=== PATIENT | male | born 1995 | race Caucasian/White ===

== ENCOUNTER 2022-04-03 03:44 | Emergency (ER) | payer SELFPAY ==
[2022-04-03 04:10] VITALS: BP 169/106; PULSE 90; TEMP 99.8; BMI 35.4
[2022-04-03] MEDS ORDERED: ACETAMINOPHEN 325 MG TABLET (FP) PO ONE (04:24)
[2022-04-03] MEDS ORDERED: ACETAMINOPHEN 325 MG TABLET (FP) ONE (04:28)
[2022-04-03] MEDS ORDERED: AMOX TR/POT CLAV 875MG/125MG TABLETS (FP) PO ONE (06:41)
[2022-04-03] MEDS ORDERED: AMOX TR/POT CLAV 875MG/125MG TABLETS (FP) ONE (06:44)
[2022-04-03 06:52] LABS: ALBUMIN 3.7 g/dl (3.4-5.0); BILIRUBIN,TOTAL 0.4 mg/dL (0.2-1); BLOOD UREA NITROGEN 15.3 mg/dL (7-18); CALCIUM 8.7 mg/dL (8.5-10.1); CREATININE 0.8 mg/dL (0.55-1.3); TOT PROT 7.5 g/dl (6.4-8.2)
[2022-04-03 07:33] LABS: BASO % 0.2 % (0-2.0); EOS % 1.9 % (0-4.5); HEMATOCRIT 43.5 % (35.4-49); HEMOGLOBIN 15.1 GM/dL (11.7-16.9); LYMPH % 26.5 % (8-40); MCHC 34.7 g/dl (32.0-35.9); MEAN CELL VOLUME 86.5 fl (80-96); NEUT % 59.4 % (42.8-82.8); PLATELET COUNT 217 10^3/uL (134-434); RBC 5.03 M/mm3 (4.00-5.60); WHITE BLOOD COUNT 10.7 K/mm3 (4.0-10.0)
== END 2022-04-03 07:03 | disposition home or self-care (01) ==
LOC: JER 03:44
DX: H66.005 Acute suppurative otitis media without spontaneous rupture of ear drum, recurrent, left ear (principal)
CPT/HCPCS: 36415; 70480-TC; 80053; 85025; 99284-25

== ENCOUNTER 2022-12-02 13:41 | Inpatient (IN) | payer OTHER ==
[2022-12-02] MEDS ORDERED: ONDANSETRON 4 MG/2 ML VIAL IVPUSH ONE (14:10)
[2022-12-02] MEDS ORDERED: SODIUM CHLORIDE 1,000 ML IV STA ×2 (14:10→15:50)
[2022-12-02] MEDS ORDERED: ONDANSETRON 4 MG/2 ML VIAL ONE (14:21)
[2022-12-02] MEDS ORDERED: FAMOTIDINE 20 MG/50 ML IVPB 20 MG/50 ML MG IVPB ONE ×2 (14:26→14:40)
[2022-12-02 14:55] LABS: BASO % 0.2 % (0-2.0); EOS % 0.2 % (0-4.5); HEMATOCRIT 48.1 % (35.4-49); LYMPH % 11.1 % (8-40); MCH 30.4 pg (25.7-33.7); MCHC 35.3 g/dl (32.0-35.9); MEAN PLT VOLUME 9.2 fl (7.5-11.1); MONO % 7.1 % (3.8-10.2); NEUT % 81.4 % (42.8-82.8); PLATELET COUNT 277 10^3/uL (134-434); RBC 5.59 M/mm3 (4.00-5.60); RDW 13.7 % (11.9-15.9); WHITE BLOOD COUNT 14.9 K/mm3 (4.0-10.0)
[2022-12-02 15:16] LABS: CALCIUM 9.5 mg/dL (8.5-10.1)
[2022-12-02 15:17] LABS: BLOOD UREA NITROGEN 10.8 mg/dL (7-18)
[2022-12-02 15:19] LABS: CREATININE 0.9 mg/dL (0.55-1.3)
[2022-12-02 15:21] LABS: BILIRUBIN,TOTAL 0.6 mg/dL (0.2-1); TOT PROT 8.5 g/dl (6.4-8.2)
[2022-12-02 15:31] LABS: EPI CELLS 9 /uL (0-25.1); HYALINE CASTS 1 /uL (0-3.1); URINE APPEARANCE CLEAR; URINE BACTERIA 5 /uL (0-1359); URINE BILIRUBIN NEGATIVE (NEGATIVE); URINE COLOR YELLOW; URINE GLUCOSE (UA) NEGATIVE (NEGATIVE); URINE KETONE NEGATIVE (NEGATIVE); URINE LEUK ESTERASE NEGATIVE (NEGATIVE); URINE NITRITE NEGATIVE (NEGATIVE); URINE PROTEIN 4+ (NEGATIVE); URINE RBC 200 /uL (0-23.9); URINE UROBILINOGEN 0.2 mg/dL (0.2-1.0); URINE WBC 5 /uL (0-25.8)
[2022-12-02] MEDS ORDERED: ACETAMINOPHEN 1000 MG/100 ML BAG IVPB ONE (17:34)
[2022-12-02] MEDS ORDERED: ACETAMINOPHEN INJECTION 100 ML IVPB ONE (17:53)
[2022-12-02] MEDS ORDERED: PIPERACILLIN/TAZOB 3.375 GM 3.375 GM in DEXTROSE 5%-WATER - 50 ML IVPB ONE (18:07)
[2022-12-02] MEDS ORDERED: PIPERACILLIN/TAZOB 3.375 GM 3.375 GM/50 ML BAG IVPB ONE (18:18)
[2022-12-02 18:52] LABS: INR 1.12 (0.83-1.09)
[2022-12-02 18:55] LABS: ACTIVATED PTT 36.8 SECONDS (25.2-36.5)
[2022-12-02] MEDS ORDERED: ONDANSETRON 4 MG/2 ML VIAL IVPUSH PRN (20:33)
[2022-12-02] MEDS ORDERED: ACETAMINOPHEN 1000 MG/100 ML BAG IVPB PRN ×2 (20:34→23:30)
[2022-12-02] MEDS ORDERED: hydrALAZINE HCL 20 MG/ML VIAL IVPB ONE (21:52)
[2022-12-02] MEDS ORDERED: LACTATED RINGERS SOLUTION 1,000 ML/1,000 ML INFUS.BAG IV SCH (22:00)
[2022-12-03 00:51] VITALS: BMI 36.8
[2022-12-03] MEDS: AMPICILLIN NA/SULBACTAM NA 1.5 GM in SODIUM CHLORIDE 100 ML IVPB SCH ×4 (03:40→15:00)
[2022-12-03] MEDS ORDERED: HYDROmorphone HCL CARPU-JECT 2 MG/1 ML DISP.SYRIN IM PRN (04:08)
[2022-12-03] MEDS ORDERED: ONDANSETRON 4 MG/2 ML VIAL IVPUSH ONE (04:09)
[2022-12-03] MEDS ORDERED: HYDROmorphone HCl 2 MG/ML VIAL IM ONE (04:10)
[2022-12-03] MEDS ORDERED: LOSARTAN POTASSIUM 50 MG TABLET PO ONE (04:12)
[2022-12-03 08:41] LABS: ALBUMIN 3.6 g/dl (3.4-5.0); BLOOD UREA NITROGEN 9.4 mg/dL (7-18)
[2022-12-03 08:44] LABS: CREATININE 0.8 mg/dL (0.55-1.3); PHOSPHOROUS 4.2 mg/dL (2.5-4.9)
[2022-12-03 08:45] LABS: CALCIUM 9.1 mg/dL (8.5-10.1); HEMATOCRIT 46.3 % (35.4-49); HEMOGLOBIN 16.1 GM/dL (11.7-16.9); MCH 29.8 pg (25.7-33.7); MCHC 34.7 g/dl (32.0-35.9); MEAN CELL VOLUME 85.7 fl (80-96); MEAN PLT VOLUME 9.4 fl (7.5-11.1); PLATELET COUNT 284 10^3/uL (134-434); RBC 5.41 M/mm3 (4.00-5.60); RDW 13.4 % (11.9-15.9); WHITE BLOOD COUNT 14.6 K/mm3 (4.0-10.0)
[2022-12-03 08:46] LABS: BILIRUBIN,TOTAL 0.8 mg/dL (0.2-1); TOT PROT 7.6 g/dl (6.4-8.2)
[2022-12-03] MEDS ORDERED: LACTATED RINGERS SOLUTION 1,000 ML/1,000 ML INFUS.BAG IV SCH ×2 (08:53→16:30)
[2022-12-03] MEDS ORDERED: hydrALAZINE HCL 20 MG/ML VIAL IVPB ONE (08:54)
[2022-12-03 12:39] LABS: EPI CELLS 7 /uL (0-25.1); HYALINE CASTS 3 /uL (0-3.1); PH,URINE 6.5 (5.0-8.0); URINE APPEARANCE CLEAR; URINE BACTERIA 2 /uL (0-1359); URINE BILIRUBIN NEGATIVE (NEGATIVE); URINE COLOR YELLOW; URINE GLUCOSE (UA) NEGATIVE (NEGATIVE); URINE KETONE NEGATIVE (NEGATIVE); URINE LEUK ESTERASE NEGATIVE (NEGATIVE); URINE NITRITE NEGATIVE (NEGATIVE); URINE PROTEIN 3+ (NEGATIVE); URINE RBC 55 /uL (0-23.9); URINE UROBILINOGEN 0.2 mg/dL (0.2-1.0); URINE WBC 5 /uL (0-25.8)
[2022-12-03] MEDS ORDERED: BUPIVACAINE HCL/PF 0.25% (2.5MG/ML) 10 ML VIAL ONE (13:28)
[2022-12-03] MEDS ORDERED: MIDAZOLAM HCL 2 MG/2 ML SINGLE DOSE VIAL ONE (13:50)
[2022-12-03] MEDS ORDERED: ROCURONIUM BROMIDE 50 MG/5 ML SYRINGE ONE ×2 (13:50→16:28)
[2022-12-03] MEDS ORDERED: PROPOFOL 40 ML ONE (13:50)
[2022-12-03] MEDS ORDERED: SUCCINYLCHOLINE CHLORIDE 200 MG/10 ML SYRINGE ONE (13:50)
[2022-12-03] MEDS ORDERED: AMPICILLIN SODIUM 2 GM VIAL IVPB ONE ×2 (14:24→14:25)
[2022-12-03] MEDS ORDERED: BUPIVACAINE HCL/PF 2.5 MG/ML - 30 ML VIAL IJ ONE (14:30)
[2022-12-03] MEDS ORDERED: PROPOFOL 20 ML ONE (14:38)
[2022-12-03] MEDS ORDERED: KETAMINE HCL 500 MG/10 ML VIAL ONE (14:45)
[2022-12-03] MEDS ORDERED: DEXMEDETOMIDINE HCL 200 MCG/2 ML IVPB ONE (16:11)
[2022-12-03] MEDS ORDERED: ACETAMINOPHEN INJECTION 100 ML IVPB ONE ×2 (16:12→20:28)
[2022-12-03] MEDS ORDERED: ONDANSETRON 4 MG/2 ML VIAL IVPUSH PRN ×2 (16:30→16:45)
[2022-12-03] MEDS ORDERED: LACTATED RINGERS SOLUTION 1,000 ML IV SCH (16:45)
[2022-12-03 18:36] VITALS: RESP 18
[2022-12-03] MEDS: ACETAMINOPHEN 1000 MG/100 ML BAG IVPB SCH (21:32)
[2022-12-04] MEDS: KETOROLAC TROMETHAMINE 30 MG/1 ML VIAL IVPUSH SCH ×3 (01:34→09:51)
[2022-12-04] MEDS: ACETAMINOPHEN 1000 MG/100 ML BAG IVPB SCH ×2 (05:18→09:52)
[2022-12-04 08:45] LABS: BASO % 0.1 % (0-2.0); EOS % 0.2 % (0-4.5); HEMATOCRIT 40.9 % (35.4-49); HEMOGLOBIN 13.9 GM/dL (11.7-16.9); LYMPH % 15.3 % (8-40); MCH 29.6 pg (25.7-33.7); MCHC 34.1 g/dl (32.0-35.9); MEAN CELL VOLUME 86.8 fl (80-96); MEAN PLT VOLUME 9.3 fl (7.5-11.1); MONO % 10.5 % (3.8-10.2); NEUT % 73.9 % (42.8-82.8); PLATELET COUNT 265 10^3/uL (134-434); RBC 4.71 M/mm3 (4.00-5.60); RDW 13.8 % (11.9-15.9); WHITE BLOOD COUNT 13.7 K/mm3 (4.0-10.0)
[2022-12-04 09:05] LABS: BLOOD UREA NITROGEN 21.2 mg/dL (7-18); CALCIUM 8.5 mg/dL (8.5-10.1)
[2022-12-04 09:08] LABS: CREATININE 0.9 mg/dL (0.55-1.3)
[2022-12-04 09:09] LABS: TOT PROT 6.5 g/dl (6.4-8.2)
[2022-12-04 09:10] LABS: BILIRUBIN,TOTAL 0.7 mg/dL (0.2-1)
[2022-12-04 11:15] VITALS: BP 124/77; PULSE 82; TEMP 98.2
[2022-12-04] MEDS ORDERED: LISINOPRIL 5 MG TABLET PO SCH (13:45)
[2022-12-08 21:33] LABS: ANTIGLOMERULAR BASEMENT MEN.AB <0.2 units (0.0-0.9)
[2022-12-09 16:09] LABS: ATYPICAL pANCA <1:20 titer (Neg:<1:20); C-ANCA <1:20 titer (Neg:<1:20)
== END 2022-12-04 14:12 | disposition home or self-care (01) | DRG 263 ==
LOC: JER 13:41 → JERBED 18:29 → J5S 20:59
PROVIDERS: ADMIT Internal Medicine; ATTEND Internal Medicine
PROC: 0FT44ZZ Resection of Gallbladder, Percutaneous Endoscopic Approach (ICD-10-PCS; principal; 2022-12-03 13:30)
DX: K81.0 Acute cholecystitis (principal); K21.9 Gastro-esophageal reflux disease without esophagitis; I10 Essential (primary) hypertension; R80.9 Proteinuria, unspecified; R31.29 Other microscopic hematuria; E66.9 Obesity, unspecified; Z68.36 Body mass index [BMI] 36.0-36.9, adult
CPT/HCPCS: 36415; 71046-TC-FY; 76705-TC; 80053; 81003; 82150; 82533; 82570; 83036; 83516; 83520; 83690; 83735; 84100; 84155; 84156; 84165; 84443; 85025; 85027; 85610; 85730; 86038; 86140; 86160; 86225; 86256; 86850; 86900; 86901; 87086; 87340; 87517; 87522; 88304-TC; 93005; 93010; 94760; 99285-25; C9803-CS; U0003; U0005

== ENCOUNTER 2023-01-04 16:24 | Emergency (ER) | payer OTHER ==
[2023-01-04 16:34] VITALS: BP 155/94; PULSE 90; RESP 18; TEMP 98.7; BMI 39.1
== END 2023-01-04 17:17 | disposition home or self-care (01) ==
LOC: JERFT 16:24
DX: H66.91 Otitis media, unspecified, right ear (principal); H60.91 Unspecified otitis externa, right ear
CPT/HCPCS: 99283-25

== ENCOUNTER 2023-08-03 10:03 | Emergency (ER) | payer SELFPAY ==
[2023-08-03 10:12] VITALS: BMI 37.5
[2023-08-03] MEDS ORDERED: ACETAMINOPHEN 1000 MG/100 ML BAG IVPB ONE (11:04)
[2023-08-03] MEDS ORDERED: ACETAMINOPHEN INJECTION 100 ML IVPB ONE (11:36)
[2023-08-03 12:40] LABS: ALBUMIN 3.5 g/dl (3.4-5.0)
[2023-08-03 12:43] LABS: CREATININE 0.7 mg/dL (0.55-1.3)
[2023-08-03 12:45] LABS: BILIRUBIN,TOTAL 0.7 mg/dL (0.2-1)
[2023-08-03 12:54] LABS: BLOOD UREA NITROGEN 13.4 mg/dL (7-18); CALCIUM 7.9 mg/dL (8.5-10.1); TOT PROT 7.6 g/dl (6.4-8.2)
[2023-08-03 13:09] LABS: BASO % 0.4 % (0-2.0); HEMATOCRIT 46.8 % (35.4-49); HEMOGLOBIN 16.4 GM/dL (11.7-16.9); LYMPH % 44.8 % (8-40); MCH 30.7 pg (25.7-33.7); MCHC 35.1 g/dl (32.0-35.9); MEAN CELL VOLUME 87.5 fl (80-96); MEAN PLT VOLUME 9.8 fl (7.5-11.1); MONO % 7.6 % (3.8-10.2); NEUT % 44.2 % (42.8-82.8); PLATELET COUNT 259 10^3/uL (134-434); RBC 5.34 M/mm3 (4.00-5.60); RDW 13.6 % (11.9-15.9); WHITE BLOOD COUNT 8.7 K/mm3 (4.0-10.0)
[2023-08-03] MEDS ORDERED: KETOROLAC TROMETHAMINE 30 MG/1 ML VIAL IM ONE (17:56)
[2023-08-03] MEDS ORDERED: KETOROLAC TROMETHAMINE 15 MG/ML VIAL IVPUSH ONE (18:25)
[2023-08-03] MEDS ORDERED: KETOROLAC TROMETHAMINE 15 MG/ML VIAL ONE (18:32)
[2023-08-03 19:04] VITALS: BP 128/79; PULSE 69; RESP 16; TEMP 98
== END 2023-08-03 18:50 | disposition home or self-care (01) ==
LOC: JER 10:03
PROC: 3E033NZ Introduction of Analgesics, Hypnotics, Sedatives into Peripheral Vein, Percutaneous Approach (ICD-10-PCS; principal; 2023-08-03)
PROC: 3E0333Z Introduction of Anti-inflammatory into Peripheral Vein, Percutaneous Approach (ICD-10-PCS; 2023-08-03)
DX: R10.11 Right upper quadrant pain (principal); R19.7 Diarrhea, unspecified
CPT/HCPCS: 36415; 74177-TC; 76705-TC; 80053; 83690; 85025; 99285-25